=== PATIENT | male | born 1960 | race Caucasian/White ===

== ENCOUNTER 2020-09-09 12:23 | Emergency (ER) | payer BC ==
--- NOTE | 2020-09-09 13:42 | ERPHSYRPT ---
- History of Present Illness Time Seen by Provider: 09/09/20 13:37 Source: patient, family Exam Limitations: no limitations Patient Subjective Stated Complaint: Left leg pain and swelling for one week Triage Nursing Assessment: Patient AXO X3. Lungs clear throughout. Heart rate wnl. bowels sounds present. left leg swollen 1+ and tender to the touch. Pulses present Physician History: Left leg pain and swelling for one week This 60-year-old male with significant past medical history of factor V Leiden deficiency and history of chronic deep vein thrombosis of lower extremities for which patient has been on warfarin for years but he recently stopped taking it for last 2 months but started it again 5 days ago. He started having a pain in his left lower extremity below the knee so he came to the emergency room. Heladio bee denies any chest pain nausea vomiting shortness of breath blood in the stool or urine Method of Injury: unknown Occurred: yesterday Quality: aching Severity of Pain-Max: moderate Severity of Pain-Current: moderate Lower Extremities Pain: leg: left (below knee) Allergies/Adverse Reactions: No Known Drug Allergies Allergy (Unverified 09/09/20 13:08) Home Medications: Aspirin EC 81 mg [Ecotrin 81 mg] 81 mg PO DAILY 09/09/20 [History] Warfarin Sodium 2 mg [Coumadin 2 MG] 4 mg PO DIRECTIONS UNKNOWN 09/09/20 [History] Warfarin Sodium 3 mg [Coumadin 3 MG] 6 mg PO DIRECTIONS UNKNOWN 09/09/20 [History] Hx Tetanus, Diphtheria Vaccination/Date Given: No Hx Influenza Vaccination/Date Given: No Hx Pneumococcal Vaccination/Date Given: No Immunizations Up to Date: No Travel Risk - International Travel Have you traveled outside of the country in past 3 weeks: No - Coronavirus Screening Are you exhibiting any of the following symptoms?: No Close contact with a COVID-19 positive Pt in past 14-21 Days: No - Vaccine Status Have you recieved a Covid-19 vaccination: No - Review of Systems Constitutional: No Fever, No Chills Eyes: No Symptoms Ears, Nose, & Throat: No Symptoms Respiratory: No Cough, No Dyspnea Cardiac: No Chest Pain, No Edema, No Syncope Abdominal/Gastrointestinal: No Abdominal Pain, No Nausea, No Vomiting, No Diarrhea Genitourinary Symptoms: No Dysuria Musculoskeletal: Other (pain in left leg and calf area), No Back Pain, No Neck Pain Skin: No Rash Neurological: No Dizziness, No Focal Weakness, No Sensory Changes Psychological: No Symptoms Endocrine: No Symptoms All Other Systems: Reviewed and Negative - Past Medical History Pertinent Past Medical History: Yes Neurological History: No Pertinent History ENT History: No Pertinent History Cardiac History: No Pertinent History Respiratory History: No Pertinent History Endocrine Medical History: No Pertinent History Musculoskeletal History: No Pertinent History GI Medical History: No Pertinent History History: No Pertinent History Psycho-Social History: No Pertinent History Male Reproductive Disorders: No Pertinent History Other Medical History: Factor 5 - Past Surgical History Past Surgical History: Yes Neuro Surgical History: No Pertinent History Cardiac: Cardiac Stent Respiratory: No Pertinent History Gastrointestinal: No Pertinent History Genitourinary: No Pertinent History Musculoskeletal: Other Male Surgical History: No Pertinent History Other Surgical History: Trigger finger, Hemohorrid Removal - Social History Smoking Status: Current every day smoker Drug Use: none - Nursing Vital Signs Nursing Vital Signs: Initial Vital Signs Temperature 97.6 F 09/09/20 12:24 Pulse Rate 66 09/09/20 12:24 Respiratory Rate 20 09/09/20 12:24 Blood Pressure 137/95 09/09/20 12:24 O2 Sat by Pulse Oximetry 97 09/09/20 12:24 Pain Scale Pain Intensity 0 - Physical Exam General Appearance: alert Eyes, Ears, Nose, Throat Exam: moist mucous membranes Neck Exam: non-tender, supple Cardiovascular/Respiratory Exam: chest non-tender, normal breath sounds, regular rate/rhythm, no respiratory distress Gastrointestinal/Abdominal Exam: non-tender Back Exam: normal inspection, No vertebral tenderness Legs Exam: left leg: soft tissue tenderness (positive homans sign), swelling Knees Exam: bilateral knee: non-tender Ankle Exam: bilateral ankle: non-tender Foot Exam: bilateral foot: non-tender Neuro/Tendon Exam: normal sensation, normal motor functions Mental Status Exam: alert, oriented x 3, cooperative Skin Exam: normal color, warm, dry SpO2: 96 - Course Nursing assessment & vital signs reviewed: Yes - Radiology Ultrasound Exam Venous Lower Extremity Ultrasound: tele radiology report (left posterior tibial DVT.) Ordered Tests: Active Orders 24 hr Category Date Time Status VENOUS UNILAT/LIMITED EXTREMIT [US] Stat Exams 09/09/20 Ordered CBC W DIFF Stat Lab 09/09/20 13:30 Completed CMP Stat Lab 09/09/20 13:30 Completed D-DIMER QUANTITATIVE Stat Lab 09/09/20 13:30 Completed PROTIME WITH INR Stat Lab 09/09/20 13:30 Completed Medication Summary Discontinued Medications Generic Name Dose Route Start Last Admin Trade Name Freq PRN Reason Stop Dose Admin Warfarin Sodium 10 mg 09/09/20 14:15 09/09/20 14:34 Coumadin 10 Mg PO 09/09/20 14:16 10 mg STAT STA Administration Warfarin Sodium 10 mg 09/09/20 14:29 09/09/20 14:41 Coumadin 5 Mg PO 09/09/20 14:30 Not Given STAT STA Lab/Rad Data: Laboratory Result Diagrams 09/09/20 13:30 09/09/20 13:30 Laboratory Results 09/09/20 09/09/20 09/09/20 Range/Units 13:30 13:30 13:30 WBC 8.1 (4.0-10.5) K/mm3 RBC 5.54 (4.1-5.6) M/mm3 Hgb 16.7 (12.5-18.0) gm/dl Hct 49.9 (42-50) % MCV 90.1 (78-100) fl MCH 30.1 (26-32) pg MCHC 33.5 (32-36) g/dl RDW 13.4 (11.5-14.0) % Plt Count 177 (150-450) K/mm3 MPV 9.5 (7.5-11.0) fl Gran % 66.8 H (36.0-66.0) % Eos # (Auto) 0.22 (0-0.5) Absolute Lymphs (auto) 1.67 (1.0-4.6) Absolute Monos (auto) 0.76 (0.0-1.3) Lymphocytes % 20.7 L (24.0-44.0) % Monocytes % 9.4 (0.0-12.0) % Eosinophils % 2.7 (0.00-5.0) % Basophils % 0.4 (0.0-0.4) % Absolute Granulocytes 5.40 (1.4-6.9) Basophils # 0.03 (0-0.4) PT 19.7 H (8.83-12.87) SECONDS INR 1.73 (0.8-3.0) D-Dimer 1250 H* (215-500) ng/mL Sodium 139 (137-145) mmol/L Potassium 4.5 (3.5-5.1) mmol/L Chloride 106 (98-107) mmol/L Carbon Dioxide 28 (22-30) mmol/L Anion Gap 9.2 (5-15) MEQ/L BUN 12 (9-20) mg/dL Creatinine 1.26 H (0.66-1.25) mg/dL Estimated GFR > 60.0 ML/MIN Glucose 89 (74-106) mg/dL Calcium 9.4 (8.4-10.2) mg/dL Total Bilirubin 0.30 (0.2-1.3) mg/dL AST 24 (17-59) U/L ALT 23 (0-50) U/L Alkaline Phosphatase 73 (38-126) U/L Serum Total Protein 6.8 (6.3-8.2) g/dL Albumin 4.1 (3.5-5.0) g/dL - Progress Progress: unchanged, pain not gone completely Counseled pt/family regarding: lab results, diagnosis, need for follow-up, rad results - Departure Departure Disposition: Home Clinical Impression: Factor V inhibitor disorder Deep vein thrombosis Qualifiers: DVT location: lower extremity Affected thrombotic vein of extremity: calf mu scle vein Chronicity: chronic Laterality: left Qualified Code(s): I82.562 - 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 Do not stop warfarin at all. Discharge/Care Plan MARCUSEVANS Headley was seen on 09/09/20 in the Emergency Room. The patient was counseled regarding Diagnosis,Lab results, Imaging studies, need for follow up and when to return to the Emergency Room. Prescriptions given: Discharge Note I have spoken with the patient and/or caregivers. I have explained the patient's condition, diagnosis and treatment plan based on the information available to me at this time. I have answered the patient's and/or caregiver's questions and addressed any concerns. The patient and/or caregivers have as good understanding of the patient's diagnosis, condition and treatment plan as can be expected at this point. The vital signs have been stable. The patient's condition is stable and appropriate for discharge from the emergency department. The patient will pursue further outpatient evaluation with the primary care physician or other designated or consulting physician as outlined in the discharge instructions. The patient and/or caregivers are agreeable to this plan of care and follow-up instructions have been explained in detail. The patient and/or caregivers have received these instruction. The patient/and or caregivers are aware that any significant change in condition or worsening of symptoms should prompt an immediate return to this or the closest emergency department or call 911.
[2020-09-09 13:57] LABS: BASOPHIL % 0.4 % (0.0-0.4); Basophil (Absolute #) 0.03 (0-0.4); Eosinophil % 2.7 % (0.00-5.0); Eosinophil (Absolute #) 0.22 (0-0.5); Hematocrit 49.9 % (42-50); Hemoglobin 16.7 gm/dl (12.5-18.0); Lymphocyte (Absolute #) 1.67 (1.0-4.6); Lymphocytes % 20.7 % (24.0-44.0); Mean Cell Volume 90.1 fl (78-100); Mean Corpuscular Hemoglobin 30.1 pg (26-32); Mean Corpuscular Hgb Concent. 33.5 g/dl (32-36); Mean Platelet Volume 9.5 fl (7.5-11.0); Monocyte (Absolute #) 0.76 (0.0-1.3); Monocytes % 9.4 % (0.0-12.0); Neutrophil % 66.8 % (36.0-66.0); Platelet Count 177 K/mm3 (150-450); Red Blood Count 5.54 M/mm3 (4.1-5.6); Red Cell Distribution Width 13.4 % (11.5-14.0); White Blood Count 8.1 K/mm3 (4.0-10.5)
[2020-09-09 14:05] LABS: INR 1.73 (0.8-3.0); PROTIME 19.7 SECONDS (8.83-12.87)
[2020-09-09 14:11] LABS: ALBUMIN 4.1 g/dL (3.5-5.0); ALKALINE PHOSPHATASE 73 U/L (38-126); ANION GAP 9.2 MEQ/L (5-15); BLOOD UREA NITROGEN 12 mg/dL (9-20); CHLORIDE 106 mmol/L (98-107); Calcium 9.4 mg/dL (8.4-10.2); Carbon Dioxide 28 mmol/L (22-30); Creatinine 1 1.26 mg/dL (0.66-1.25); EST GLOMERULAR FILTRATION RATE > 60.0 ML/MIN; Glucose 89 mg/dL (74-106); Potassium 4.5 mmol/L (3.5-5.1); SGOT/AST 24 U/L (17-59); SGPT/ALT 23 U/L (0-50); SODIUM 139 mmol/L (137-145); Total Protein 6.8 g/dL (6.3-8.2)
[2020-09-09] MEDS ORDERED: Coumadin 10 MG PO STA (14:15)
[2020-09-09] MEDS ORDERED: Coumadin 5 MG PO STA (14:29)
[2020-09-09] MEDS ORDERED: ENOXAPARIN SODIUM SQ STA (15:01)
[2020-09-09] MEDS ORDERED: ENOXAPARIN SODIUM SQ ONE (15:09)
[2020-09-09 15:24] VITALS: BP 179/98; PULSE 60; O2SAT 99
--- NOTE | 2020-09-09 20:55 | XRAY ---
Indication: Left calf/ankle pain and swelling. History of DVT. Two-dimensional sonogram and color Doppler imaging of the major venous vessels of the left leg was performed. Comparison: None No thrombus seen in the examined deep venous vessels of the left leg including greater saphenous vein. Posterior tibial vein noncompressible. Remaining veins demonstrate normal compressibility. Venous waveforms are normal with and without augmentation. Impression: Left leg negative for obvious DVT. However posterior tibial vein noncompressible and therefore cannot completely exclude DVT. Comment: Preliminary report was given.
== END 2020-09-09 15:28 | disposition home or self-care (01) ==
LOC: ED 12:23
DX: D68.51 Activated protein C resistance (principal); I82.562 Chronic embolism and thrombosis of left calf muscular vein
CPT/HCPCS: 36415; 80053; 85025; 85379; 85610; 93971; 96372; 99284; 99291; J1650; A9270-GY

== ENCOUNTER 2023-12-11 16:15 | Emergency (ER) | payer BC ==
[2023-12-11 16:25] VITALS: RESP 20; TEMP 98
[2023-12-11 16:38] VITALS: BP 157/97; PULSE 86; O2SAT 94
--- NOTE | 2023-12-11 16:55 | ERPHSYRPT ---
- History of Present Illness Time Seen by Provider: 12/11/23 16:30 Source: patient Exam Limitations: no limitations Patient Subjective Stated Complaint: Lacaration Triage Nursing Assessment: Patient ambulated back to ED and transferred self to bed. Patient A+O X3. Patient's skin pink, warm and dry. Patient complains of laceration to left hand top of thumb. Patient has 13cm X 3cm laceration to top of thumb with tendon exposure. Patient denies pain or discomfort. Patient was using a utility knife when he missed and cut the left hand top of thumb area. Physician History: 63-year-old male [id number] presented to the ER with left thumb dorsal aspect laceration prior to arrival while working with a utility knife. Patient reports mild to moderate pain with movements. Has exposed tendon, slow oozing. Patient has history of factor V Leyden mutation and taking aspirin and Plavix. Denies any numbness or tingling at the tip. No injury anywhere else. Has 13 x 3 cm laceration from base of thumb to the nail with slow oozing distally. Exposed tendon with partial laceration. Fairly intact range of motion but full range of motion cannot be assessed because of pain. Intact distal sensations. Cap refill less than 3 seconds. I have discussed with Dr. Watts orthopedics on-call, recommended thorough wash, 2 g of Kefzol, skin closure and outpatient follow-up in the same-day surgery area tomorrow morning at 730 with n.p.o. status. X-rays are negative for fracture or dislocation. Laceration is repaired. Bulky dressing applied. I will continue with Keflex to go home. Allergies/Adverse Reactions: No Known Drug Allergies Allergy (Verified 12/11/23 16:19) Home Medications: Aspirin EC 81 mg [Ecotrin 81 mg] 81 mg PO DAILY 09/09/20 [History] Clopidogrel Bisulfate [PLAVIX Tablet] 1 tab PO DAILY 12/11/23 [History] Hx Tetanus, Diphtheria Vaccination/Date Given: No Hx Influenza Vaccination/Date Given: Yes Hx Pneumococcal Vaccination/Date Given: No Immunizations Up to Date: Yes Travel Risk - International Travel Have you traveled outside of the country in past 3 weeks: No - Emerging Infectious Disease Are you exhibiting symptoms associated with any current EIDs: No - Review of Systems Constitutional: No Symptoms Ears, Nose, & Throat: No Symptoms Respiratory: No Symptoms Cardiac: No Symptoms Abdominal/Gastrointestinal: No Symptoms Genitourinary Symptoms: No Symptoms Musculoskeletal: Injury, Joint Pain Skin: Skin Lesions Neurological: No Symptoms Endocrine: No Symptoms Hematologic/Lymphatic: No Symptoms - Past Medical History Pertinent Past Medical History: Yes Neurological History: No Pertinent History ENT History: No Pertinent History Cardiac History: No Pertinent History Respiratory History: No Pertinent History Endocrine Medical History: No Pertinent History Musculoskeletal History: No Pertinent History GI Medical History: No Pertinent History History: No Pertinent History Psycho-Social History: No Pertinent History Male Reproductive Disorders: No Pertinent History Other Medical History: Factor 5 - Past Surgical History Past Surgical History: Yes Neuro Surgical History: No Pertinent History Cardiac: Cardiac Stent Respiratory: No Pertinent History Gastrointestinal: No Pertinent History Genitourinary: No Pertinent History Musculoskeletal: Other Male Surgical History: No Pertinent History Other Surgical History: Trigger finger, Hemohorrid Removal - Social History Smoking Status: Current every day smoker How long have you smoked: years Exposure to second hand smoke: No Drug Use: none - Social Determinants of Health Will the patient participate in the screening: Yes Do you worry about a steady place to live?: No Do you have any problems with any of the following?: No known problems In the past 12 months,have you had to go without utilities?: No Transportation Issues: No Has anyone in your support network made you feel unsafe?: No Have you or anyone in your house had to go without enough: No - Nursing Vital Signs Nursing Vital Signs: Initial Vital Signs Temperature 98.0 F 12/11/23 16:22 Pulse Rate 88 12/11/23 16:22 Respiratory Rate 20 12/11/23 16:22 Blood Pressure 179/116 12/11/23 16:22 O2 Sat by Pulse Oximetry 96 12/11/23 16:22 Pain Scale Pain Intensity 5 - Physical Exam General Appearance: no apparent distress, alert Neck Exam: normal inspection, full range of motion Cardiovascular/Respiratory Exam: normal breath sounds, regular rate/rhythm Elbow/Forearm Exam: normal inspection, non-tender, no evidence of injury, normal ROM Wrist Exam: normal inspection, non-tender, no evidence of injury, normal ROM Hand Exam: laceration (Left thumb dorsal aspect) Neuro/Tendon Exam: normal sensation Mental Status Exam: alert SpO2 Interpretation: normal SpO2: 94 O2 Delivery: Room Air Procedures - Laceration/Wound Repair Left Dorsal Hand Time of Procedure: 18:09 Wound Location: Left, hand Wound Length (cm): 13 Wound's Depth, Shape: into muscle, linear, contused tissue Wound Explored: clean Irrigated: Yes Hibiclens Prep: Yes Anesthesia: 1% Lidocaine Volume Anesthetic (ccs): 7 Wound Debrided: minimal Wound Repaired With: sutures Suture Size/Type: 4-0, ethilon Number of Sutures: 22 Layer Closure?: No Sterile Dressing Applied?: Yes Splint Applied?: Yes Type of Splint Applied: Premade aluminum Sling Applied?: No Ordered Tests: Medication Summary Discontinued Medications Generic Name Dose Route Start Last Admin Trade Name Freq PRN Reason Stop Dose Admin Bacitracin Zinc Confirm 12/11/23 18:45 Bacitracin Packet 1 Each Pckt Administered 12/11/23 18:46 Dose 4 each .ROUTE .STK-MED ONE Cefazolin Sodium 2 g 12/11/23 18:08 12/11/23 18:35 Cefazolin Sodium 1 Gm Vial IM 12/11/23 18:09 2 g STAT ONE Administration Cefazolin Sodium Confirm 12/11/23 18:19 Cefazolin Sodium 1 Gm Vial Administered 12/11/23 18:20 Dose 2 g .ROUTE .STK-MED ONE Sterile Water Confirm 12/11/23 18:20 Water For Injection,Sterile 10 Ml Vial Administered 12/11/23 18:21 Dose 10 ml IJ .STK-MED ONE - Progress Progress: improved Progress Note: 63-year-old male [id number] presented to the ER with left thumb dorsal a spect laceration prior to arrival while working with a utility knife. Patient reports mild to moderate pain with movements. Has exposed tendon, slow oozing. Patient has history of factor V Leyden mutation and taking aspirin and Plavix. Denies any numbness or tingling at the tip. No injury anywhere else. Has 13 x 3 cm laceration from base of thumb to the nail with slow oozing distally. Exposed tendon with partial laceration. Fairly intact range of motion but full range of motion cannot be assessed because of pain. Intact distal sensations. Cap refill less than 3 seconds. I have discussed with Dr. Watts orthopedics on-call, recommended thorough wash, 2 g of Kefzol, skin closure and outpatient follow-up in the same-day surgery area tomorrow morning at 730 with n.p.o. status. X-rays are negative for fracture or dislocation. Laceration is repaired. Bulky dressing applied. I will continue with Keflex to go home. Counseled pt/family regarding: diagnosis, need for follow-up Medical Desision Making - Independent Historian Additional History obtained from: Spouse - Discussion of managment Care discussed with:: specialist (Orthopedics Dr. Watts) Agreed on:: Treatment plan, need for follow-up Will see patient: in hospital - Diagnostic Testing Diagnostic test were ordered, analyzed, and reviewed by me: No - Risk of complications The pt has a mod risk of morbidity or mortality based on: Need for prescription drug management, Need for minor surgical intervention in patient with know risk factors - Departure Departure Disposition: Home Clinical Impression: Thumb laceration Condition: Stable Critical Care Time: No Referrals: BRAD KILGORE MD [Primary Care Provider] - Follow up with PCP 1 day EMMANUEL WATTS MD [ACTIVE STAFF] - Follow up/PCP as directed (Tomorrow morning 7:30 AM at same-day surgery area. He would not eat or drink anything after midnight) Instructions: Laceration Repair With Stitches (DC) Additional Instructions: Take pain medications as needed. Intermittent ice application. Keep it elevated. Avoid exertional activities. Follow-up with orthopedics for reevaluation in the morning in the same-day surgery area at 7:30 AM. Do not eat or drink anything after midnight. Return to ER for increasing pain, numbness tingling or bluish discoloration of the tip. Prescriptions: Hydrocodone/Acetaminophen [Hydrocodone-Acetamin 5-325 mg] 1 tab PO Q6HPRN PRN 3 Days #12 tablet MDD 4 PRN Reason: Pain Cephalexin Mh 500 mg [Keflex 500 mg] 500 mg PO TID #21 cap
--- NOTE | 2023-12-11 17:16 | XRAY ---
Indication: Thumb laceration. Comparison: None 3 view right hand demonstrates bandage material overlying thumb and ring base 4th finger. No other bony, articular, or soft tissue abnormalities.
[2023-12-11] MEDS ORDERED: KEFZOL 1 GM ONE (18:19)
[2023-12-11] MEDS ORDERED: Sterile H2O 10 ml IJ ONE (18:20)
[2023-12-11] MEDS: KEFZOL 1 GM IM ONE (18:35)
[2023-12-11] MEDS ORDERED: BACIGUENT PACKET ONE (18:45)
== END 2023-12-11 18:59 | disposition home or self-care (01) ==
LOC: ED 16:15
DX: S61.012A Laceration without foreign body of left thumb without damage to nail, initial encounter (principal); W26.0XXA Contact with knife, initial encounter; Z79.02 Long term (current) use of antithrombotics/antiplatelets; Z79.899 Other long term (current) drug therapy; Z72.0 Tobacco use
CPT/HCPCS: 12005; 73130; 96372; 99283; J0690; A9270-GY

== ENCOUNTER 2024-03-17 18:12 | Observation (INO) | payer BC ==
--- NOTE | 2024-03-17 19:36 | ERPHSYRPT ---
- History of Present Illness Time Seen by Provider: 03/17/24 19:33 Source: patient Exam Limitations: no limitations Physician History: Patient is a 63-year-old male history of factor V [place] has been off of his blood thinner for several months presents to our ED for evaluation of continuous cough and left sided rib pain. No trauma no fever. Prior to the onset of his symptoms patient experienced some tenderness to his left calf. Patient symptoms are progressive. Symptoms are moderate in intensity. Patient experiences shortness of breath with coughing on exertion. No chest pain per se. No nausea vomiting or diaphoresis. Symptoms are moderate in intensity. Coughing and exertion worsens symptoms. at bedside. They voiced no other complaints or concerns at this time. Portions of this note were created with voice recognition technology. There may be grammatical, spelling, punctuation or sound alike errors Timing/Duration: day(s) (2 to 3 days) Severity: moderate Modifying Factors: Improves With: nothing (Exertion coughing) Associated Symptoms: shortness of breath, No chills, No fever, No syncope Allergies/Adverse Reactions: No Known Drug Allergies Allergy (Verified 03/17/24 19:24) Home Medications: Aspirin EC 81 mg [Ecotrin 81 mg] 81 mg PO DAILY 09/09/20 [History] Rivaroxaban 10 mg Tablet [Xarelto 10 mg Tablet] 10 mg PO DAILY 03/17/24 [History] Hx Tetanus, Diphtheria Vaccination/Date Given: No Hx Influenza Vaccination/Date Given: Yes Hx Pneumococcal Vaccination/Date Given: No Travel Risk - Emerging Infectious Disease Are you exhibiting symptoms associated with any current EIDs: No - Review of Systems Constitutional: No Symptoms, No Fever, No Chills Eyes: No Symptoms Ears, Nose, & Throat: No Symptoms Respiratory: No Symptoms, No Cough, No Dyspnea Cardiac: No Symptoms, No Chest Pain, No Edema, No Syncope Abdominal/Gastrointestinal: No Symptoms, No Abdominal Pain, No Nausea, No Vomiting, No Diarrhea Genitourinary Symptoms: No Symptoms, No Dysuria Musculoskeletal: No Symptoms, No Back Pain, No Neck Pain Skin: No Symptoms, No Rash Neurological: No Symptoms, No Dizziness, No Focal Weakness, No Sensory Changes Psychological: No Symptoms Endocrine: No Symptoms Hematologic/Lymphatic: No Symptoms Immunological/Allergic: No Symptoms All Other Systems: Reviewed and Negative - Past Medical History Pertinent Past Medical History: Yes Neurological History: No Pertinent History, TIA ENT History: No Pertinent History Cardiac History: Coronary Artery Disease, Deep Vein Thrombosis, Hypertension, Myocardial Infarction ([place]) Respiratory History: No Pertinent History, Pulmonary Embolism Endocrine Medical History: No Pertinent History Musculoskeletal History: No Pertinent History GI Medical History: No Pertinent History History: No Pertinent History Psycho-Social History: No Pertinent History Male Reproductive Disorders: No Pertinent History Other Medical History: Factor 5 - Past Surgical History Past Surgical History: Yes Neuro Surgical History: No Pertinent History Cardiac: Cardiac Stent Respiratory: No Pertinent History Gastrointestinal: No Pertinent History Genitourinary: No Pertinent History Musculoskeletal: Other Male Surgical History: No Pertinent History Other Surgical History: Left Trigger finger, Hemohorrid Removal - Social History Smoking Status: Current every day smoker How long have you smoked: years Exposure to second hand smoke: No Drug Use: none - Social Determinants of Health Will the patient participate in the screening: Yes Do you worry about a steady place to live?: No In the past 12 months,have you had to go without utilities?: No Transportation Issues: No Has anyone in your support network made you feel unsafe?: No Have you or anyone in your house had to go without enough: No - Nursing Vital Signs Nursing Vital Signs: Initial Vital Signs Temperature 96.6 F 03/17/24 19:26 Pulse Rate 89 03/17/24 19:26 Respiratory Rate 18 03/17/24 19:26 Blood Pressure 145/102 03/17/24 19:26 O2 Sat by Pulse Oximetry 96 03/17/24 19:26 Pain Scale Pain Intensity 5 - Physical Exam General Appearance: no apparent distress, alert Eye Exam: PERRL/EOMI, eyes nml inspection Ears, Nose, Throat Exam: normal ENT inspection, moist mucous membranes Neck Exam: normal inspection, full range of motion Respiratory Exam: normal breath sounds, lungs clear, airway intact, other (Tenderness to the left sided ribs), No respiratory distress Cardiovascular Exam: regular rate/rhythm, normal heart sounds, normal peripheral pulses Gastrointestinal/Abdomen Exam: soft, normal bowel sounds, No tenderness, No mass Back Exam: normal inspection, normal range of motion, No CVA tenderness, No vertebral tenderness Extremity Exam: normal inspection, normal range of motion, pelvis stable Neurologic Exam: alert, oriented x 3, cooperative, normal mood/affect, sensation nml, No motor deficits Skin Exam: normal color, warm, dry, No rash Lymphatic Exam: No adenopathy SpO2 Interpretation: normal SpO2: 97 O2 Delivery: Room Air - Course Nursing assessment & vital signs reviewed: Yes EKG Interpreted by Me: RATE (78), Sinus Rhythm, NORMAL AXIS, NORMAL INTERVALS, NORMAL QRS - CT Exams Chest CT Interpretation: Tele-radiologist Report (PE distal left main and right main pulmonary artery extending into the lobar branches) Ordered Tests: Active Orders 24 hr Category Date Time Status Book Cutter STAT Care 03/17/24 19:27 Active EKG-ER Only STAT Care 03/17/24 19:25 Active IV Insertion STAT Care 03/17/24 19:25 Active Pulse Oximetry (ED) STAT Care 03/17/24 19:25 Active CHEST WITH CONTRAST [CT] Stat Exams 03/17/24 20:48 Taken CBC W DIFF Stat Lab 03/17/24 19:35 Completed CMP Stat Lab 03/17/24 19:35 Completed TROPONIN Q4H Lab 03/17/24 19:35 Completed TROPONIN Q4H Lab 03/17/24 23:30 Ordered TROPONIN Q4H Lab 03/18/24 03:30 Ordered Transfer Order Routine Transfer 03/17/24 Ordered Medication Summary Discontinued Medications Generic Name Dose Route Start Last Admin Trade Name Freq PRN Reason Stop Dose Admin Enoxaparin Sodium 100 mg 03/17/24 22:29 Enoxaparin Sodium 120 Mg/0.8 Ml Syringe SQ 03/17/24 22:30 STAT STA Lab/Rad Data: Laboratory Result Diagrams 03/17/24 19:35 03/17/24 19:35 Laboratory Results 03/17/24 03/17/24 03/17/24 Range/Units 19:35 19:35 19:35 WBC 10.5 H (4.23-9.07) x10^3/uL RBC 5.40 (4.63-6.08) x10^6/uL Hgb 16.0 (13.7-17.5) g/dL Hct 47.3 (40.1-51.0) % MCV 87.6 (79.0-92.2) fL MCH 29.6 (25.7-32.2) pg MCHC 33.8 (32.3-36.5) g/dL RDW 12.0 (11.6-14.4) % Plt Count 152 L (163-337) x10^3/uL MPV 9.3 L (9.4-12.4) fL Gran % 71.6 H (34.0-67.9) % Immature Gran % (Auto) 0.4 (0.001-0.429) % Nucleat RBC Rel Count 0.0 (0.00-0.2) % Eos # (Auto) 0.18 (0.04-0.54) x10^3/uL Immature Gran # (Auto) 0.04 H (0.001-0.031) x10^3u/L Absolute Lymphs (auto) 1.66 (1.32-3.57) x10^3/uL Absolute Monos (auto) 1.06 H (0.30-0.82) x10^3/uL Absolute Nucleated RBC 0.00 (0.00-0.012) x10^3u/L Lymphocytes % 15.8 L (21.8-53.1) % Monocytes % 10.1 (5.3-12.2) % Eosinophils % 1.7 (0.8-7.0) % Basophils % 0.4 (0.2-1.2) % Absolute Granulocytes 7.51 H (1.78-5.38) x10^3/uL Basophils # 0.04 (0.01-0.08) x10^3/uL Sodium 141 (135-145) mmol/L Potassium 3.7 (3.5-5.1) mmol/L Chloride 103 (98-107) mmol/L Carbon Dioxide 30 (22-30) mmol/L Anion Gap 11.7 (5-15) MEQ/L BUN 14 (9-20) mg/dL Creatinine 1.09 (0.66-1.25) mg/dL Estimated GFR 77.2 ML/MIN Glucose 112 H (74-106) mg/dL Calcium 9.6 (8.4-10.2) mg/dL Total Bilirubin 0.80 (0.2-1.3) mg/dL AST 29 (17-59) U/L ALT 33 (0-50) U/L Alkaline Phosphatase 75 (38-126) U/L Troponin I < 0.012 (0.000-0.033) ng/mL Serum Total Protein 6.8 (6.3-8.2) g/dL Albumin 3.9 (3.5-5.0) g/dL - Progress Progress: improved Progress Note: I spoke to patient's framing carpenter Dr. Scott who initiated patient's treatment with Xarelto. Mechanical Drafter advises hospitalization with a dose of weight-based Lovenox. Bilateral lower extremity ultrasounds as an inpatient. Initiation of Xarelto 15 mg twice daily for 21 days then 20 mg daily. I spoke to Dr. Scott at 10:20 PM 03/17/24 22:19 63-year-old history of factor V noncompliant with his blood thinner presents to our ED with left-sided chest pain. CTA chest reveals bilateral PE. Case discussed with patient's framing carpenter who manages patient's blood thinner medication. He advised weight-based dose of Lovenox hospitalization for echocardiogram, lower extremity ultrasounds and initiation of Xarelto tomorrow. Plan of care discussed with patient. He agrees to admission [facility] for further evaluation and treatment. Vital stable. Troponin negative. Patient resting comfortably. He declined additional pain medication at bedside. They voiced no other complaints or concerns at this time. EKG sinus rhythm rate 78. Normal intervals normal axis normal QRS. Portions of this note were created with voice recognition technology. There may be grammatical, spelling, punctuation or sound alike errors Complexity of problem addressed is moderate acute complicated no critical care time complex of data reviewed and analyzed is extensive. Test ordered chest reviewed results analyzed and correlated clinically with history and physical exam. Management discussed with patient's framing carpenter and hospitalist who accepts admission to observation at 10:30 PM. Risk of complication and or risk of morbidity/mortality of patient management is high. Patient requires hospita lization for further evaluation and treatment. Vital stable. Time spent to admit patient approximately 20 minutes. Plan of care established for shared decision making. No social determinants of health present to impede follow-up. 03/17/24 22:35 Counseled pt/family regarding: lab results, diagnosis, rad results - Departure Departure Disposition: Home Clinical Impression: Bilateral pulmonary embolism, Noncompliance with medication regimen, Chest pain Condition: Stable Critical Care Time: No Referrals: BRAD KILGORE MD [Primary Care Provider] - Follow up/PCP as directed
[2024-03-17 19:43] LABS: Absolute Neutrophil Ct (ANC) 7.51 x10^3/uL (1.78-5.38); BASOPHIL % 0.4 % (0.2-1.2); Basophil (Absolute #) 0.04 x10^3/uL (0.01-0.08); Eosinophil % 1.7 % (0.8-7.0); Eosinophil (Absolute #) 0.18 x10^3/uL (0.04-0.54); Hematocrit 47.3 % (40.1-51.0); IMMATURE GRAN # 0.04 x10^3u/L (0.001-0.031); IMMATURE GRAN % 0.4 % (0.001-0.429); Lymphocyte (Absolute #) 1.66 x10^3/uL (1.32-3.57); Lymphocytes % 15.8 % (21.8-53.1); Mean Cell Volume 87.6 fL (79.0-92.2); Mean Corpuscular Hemoglobin 29.6 pg (25.7-32.2); Mean Corpuscular Hgb Concent. 33.8 g/dL (32.3-36.5); Mean Platelet Volume 9.3 fL (9.4-12.4); Monocyte (Absolute #) 1.06 x10^3/uL (0.30-0.82); Monocytes % 10.1 % (5.3-12.2); Neutrophil % 71.6 % (34.0-67.9); Platelet Count 152 x10^3/uL (163-337); White Blood Count 10.5 x10^3/uL (4.23-9.07)
[2024-03-17 20:20] LABS: ALBUMIN 3.9 g/dL (3.5-5.0); ANION GAP 11.7 MEQ/L (5-15); BILIRUBIN,TOTAL 0.8 mg/dL (0.2-1.3); Calcium 9.6 mg/dL (8.4-10.2); Creatinine 1 1.09 mg/dL (0.66-1.25); EST GLOMERULAR FILTRATION RATE 77.2 ML/MIN; Potassium 3.7 mmol/L (3.5-5.1); Total Protein 6.8 g/dL (6.3-8.2)
[2024-03-17] MEDS ORDERED: ENOXAPARIN SODIUM SQ ONE (22:33)
[2024-03-17] MEDS: ENOXAPARIN SODIUM SQ STA (22:34)
[2024-03-17] MEDS ORDERED: TYLENOL 325 MG PO PRN (23:57)
[2024-03-17] MEDS ORDERED: Zofran 4 MG/2 ML VIAL IV PRN (23:57)
[2024-03-17] MEDS ORDERED: MILK OF MAGNESIA 30 ML PO PRN (23:57)
--- NOTE | 2024-03-18 00:27 | PCM.HP ---
History of Present Illness - Chief Complaint Chief Complaint: Bilateral PE Date: 03/17/24 History of Present Illness: is a 63 year old male with a history of factor V Leiden (has been off of his blood thinner for several months) who now presented to the ED for evaluation of continuous cough and left sided rib pain. No trauma no fever. Prior to the onset of his symptoms patient experienced some tenderness to his left calf, but he denies any leg swelling. Patient symptoms are progressive. Symptoms are moderate in intensity. Patient experiences shortness of breath with coughing on exertion. Reported chest pain in the ED. No nausea vomiting or diaphoresis. Coughing and exertion worsens symptoms. In the ED, the patient was noted to have pulmonary emboli. Dr. Scott was contacted with recommendations for Lovenox and admission. At the time of my evaluation, the patient no longer has chest pain. He had stopped his Xarelto due to focusing on a home renovation project and denies losing insurance coverage. - Review of Systems Constitutional: No Symptoms Eyes: No Symptoms Ears, Nose, & Throat: No Symptoms Respiratory: Cough, Short Of Breath Cardiac: Chest Pain Abdominal/Gastrointestinal: No Symptoms Genitourinary Symptoms: No Symptoms Musculoskeletal: No Symptoms Skin: No Symptoms Neurological: No Symptoms Psychological: No Symptoms Endocrine: No Symptoms Hematologic/Lymphatic: No Symptoms Immunological/Allergic: No Symptoms All Other Systems: Reviewed and Negative Medications & Allergies Home Medications: Home Medication List Aspirin EC 81 mg [Ecotrin 81 mg] 81 mg PO DAILY 09/09/20 [History Con firmed 03/17/24] Atorvastatin Calcium [Lipitor] 40 mg PO DAILY 03/17/24 [History Confirmed 03/17/24] Lisinopril 5 mg [Zestril 5 MG] 5 mg PO DAILY 03/17/24 [History Confirmed 03/17/24] PANTOPRAZOLE 40 mg Tablet [Protonix 40MG Tablet] 40 mg PO DAILY 03/17/24 [History Confirmed 03/17/24] Rivaroxaban [Xarelto] 20 mg PO DAILY 03/17/24 [History Confirmed 03/17/24] Allergies/Adverse Reactions: Allergies Allergy/AdvReac Type Severity Reaction Status Date / Time No Known Drug Allergies Allergy Verified 03/17/24 19:24 - Past Medical History Past Medical History: Yes Neurological History: TIA ENT History: No Pertinent History Cardiac History: Coronary Artery Disease, Deep Vein Thrombosis, Hypertension, Myocardial Infarction ([place]) Respiratory History: Pulmonary Embolism Endocrine Medical History: No Pertinent History Musculoskelatal History: Arthritis GI Medical History: No Pertinent History History: No Pertinent History Pyscho-Social History: No Pertinent History Male Reproductive Disorders: No Pertinent History Comment: Factor 5 - Past Surgical History Past Surgical History: Yes Neuro Surgical History: No Pertinent History Cardiac History: Cardiac Stent Respiratory Surgery: No Pertinent History GI Surgical History: No Pertinent History Genitourinary Surgical Hx: No Pertinent History Musculskeletal Surgical Hx: Other Male Surgical History: No Pertinent History Other Surgical History: Left Trigger finger, Hemohorrid Removal Family History: Patient's father had Factor V Leiden as well. - Social History Smoking Status: Current every day smoker How long have you smoked: 43 years Exposure to second hand smoke: No Alcohol: Occasionally Drug Use: none - Social Determinants of Health Will the patient participate in the screening: Yes Do you worry about a steady place to live?: No Do you have any problems with any of the following?: No known problems In the past 12 months,have you had to go without utilities?: No Have you or anyone in your house had to go without enough: No Transportation Issues: No Has anyone in your support network made you feel unsafe?: No Does the patient want assistance with any of the above?: No - Physical Exam Vital Signs: Vital Signs - 24 hr Temp Pulse Resp BP BP Pulse Ox 03/17/24 23:55 94 L 03/17/24 23:43 97.1 F 76 24 162/87 91 L 03/17/24 22:50 97.1 F 76 24 162/87 91 L 03/17/24 22:38 97 03/17/24 22:30 79 140/82 96 03/17/24 22:00 78 20 135/88 94 L 03/17/24 21:30 79 20 129/81 94 L 03/17/24 21:01 78 21 117/94 95 03/17/24 21:00 86 21 94 L 03/17/24 20:50 78 20 96 03/17/24 20:42 86 20 94 L 03/17/24 20:01 78 20 146/88 96 03/17/24 19:51 95 03/17/24 19:30 79 20 133/89 95 03/17/24 19:26 96.6 F 89 18 145/102 96 General Appearance: no apparent distress, alert Neurologic Exam: alert, oriented x 3, cooperative, block sawyer II-XII nml as tested, normal mood/affect, nml cerebellar function Eye Exam: PERRL/EOMI, eyes nml inspection Ears, Nose, Throat Exam: normal ENT inspection Neck Exam: normal inspection, non-tender, supple, full range of motion Respiratory Exam: normal breath sounds, lungs clear Cardiovascular Exam: regular rate/rhythm, normal heart sounds Gastrointestinal/Abdomen Exam: soft, normal bowel sounds Back Exam: normal range of motion Extremity Exam: normal inspection, normal range of motion Skin Exam: normal color Results - Labs Lab/Micro Results: Lab Results-Last 24 Hours 03/17/24 03/17/24 03/17/24 Range/Units 19:35 19:35 19:35 WBC 10.5 H (4.23-9.07) x10^3/uL RBC 5.40 (4.63-6.08) x10^6/uL Hgb 16.0 (13.7-17.5) g/dL Hct 47.3 (40.1-51.0) % MCV 87.6 (79.0-92.2) fL MCH 29.6 (25.7-32.2) pg MCHC 33.8 (32.3-36.5) g/dL RDW 12.0 (11.6-14.4) % Plt Count 152 L (163-337) x10^3/uL MPV 9.3 L (9.4-12.4) fL Gran % 71.6 H (34.0-67.9) % Immature Gran % (Auto) 0.4 (0.001-0.429) % Nucleat RBC Rel Count 0.0 (0.00-0.2) % Eos # (Auto) 0.18 (0.04-0.54) x10^3/uL Immature Gran # (Auto) 0.04 H (0.001-0.031) x10^3u/L Absolute Lymphs (auto) 1.66 (1.32-3.57) x10^3/uL Absolute Monos (auto) 1.06 H (0.30-0.82) x10^3/uL Absolute Nucleated RBC 0.00 (0.00-0.012) x10^3u/L Lymphocytes % 15.8 L (21.8-53.1) % Monocytes % 10.1 (5.3-12.2) % Eosinophils % 1.7 (0.8-7.0) % Basophils % 0.4 (0.2-1.2) % Absolute Granulocytes 7.51 H (1.78-5.38) x10^3/uL Basophils # 0.04 (0.01-0.08) x10^3/uL Sodium 141 (135-145) mmol/L Potassium 3.7 (3.5-5.1) mmol/L Chloride 103 (98-107) mmol/L Carbon Dioxide 30 (22-30) mmol/L Anion Gap 11.7 (5-15) MEQ/L BUN 14 (9-20) mg/dL Creatinine 1.09 (0.66-1.25) mg/dL Estimated GFR 77.2 ML/MIN Glucose 112 H (74-106) mg/dL Calcium 9.6 (8.4-10.2) mg/dL Total Bilirubin 0.80 (0.2-1.3) mg/dL AST 29 (17-59) U/L ALT 33 (0-50) U/L Alkaline Phosphatase 75 (38-126) U/L Troponin I < 0.012 (0.000-0.033) ng/mL Serum Total Protein 6.8 (6.3-8.2) g/dL Albumin 3.9 (3.5-5.0) g/dL 03/17/24 Range/Units 23:25 WBC (4.23-9.07) x10^3/uL RBC (4.63-6.08) x10^6/uL Hgb (13.7-17.5) g/dL Hct (40.1-51.0) % MCV (79.0-92.2) fL MCH (25.7-32.2) pg MCHC (32.3-36.5) g/dL RDW (11.6-14.4) % Plt Count (163-337) x10^3/uL MPV (9.4-12.4) fL Gran % (34.0-67.9) % Immature Gran % (Auto) (0.001-0.429) % Nucleat RBC Rel Count (0.00-0.2) % Eos # (Auto) (0.04-0.54) x10^3/uL Immature Gran # (Auto) (0.001-0.031) x10^3u/L Absolute Lymphs (auto) (1.32-3.57) x10^3/uL Absolute Monos (auto) (0.30-0.82) x10^3/uL Absolute Nucleated RBC (0.00-0.012) x10^3u/L Lymphocytes % (21.8-53.1) % Monocytes % (5.3-12.2) % Eosinophils % (0.8-7.0) % Basophils % (0.2-1.2) % Absolute Granulocytes (1.78-5.38) x10^3/uL Basophils # (0.01-0.08) x10^3/uL Sodium (135-145) mmol/L Potassium (3.5-5.1) mmol/L Chloride (98-107) mmol/L Carbon Dioxide (22-30) mmol/L Anion Gap (5-15) MEQ/L BUN (9-20) mg/dL Creatinine (0.66-1.25) mg/dL Estimated GFR ML/MIN Glucose (74-106) mg/dL Calcium (8.4-10.2) mg/dL Total Bilirubin (0.2-1.3) mg/dL AST (17-59) U/L ALT (0-50) U/L Alkaline Phosphatase (38-126) U/L Troponin I < 0.012 (0.000-0.033) ng/mL Serum Total Protein (6.3-8.2) g/dL Albumin (3.5-5.0) g/dL - Radiology Impressions Radiology Exams & Impressions: Radiology Procedures Category Date Time Status CHEST WITH CONTRAST [CT] Stat Exams 03/17/24 20:48 Taken ECHO W/2D AND DOPPLER [US] Routine Exams 03/18/24 23:58 Ordered VENOUS BILATERAL EXTREMITY [US] Routine Exams 03/18/24 23:56 Ordered - Other Procedures and Tests Respiratory Therapy 12/04/24 23:32 Smoking Cessation Education ONCE Assessment/Plan (1) Bilateral pulmonary embolism Current Visit: Yes Status: Acute Assessment & Plan: Lovenox administered in ED. Will start Xarelto loading regimen tomorrow 15 mg po bid x 21 days, followed by maintenance at 20 mg daily. Monitor on tele. US legs to eval for DVT in AM (had left calf pain recently). Also ordered ECHO to eval for heart strain pattern. Code(s): I26.99 - OTHER PULMONARY EMBOLISM WITHOUT ACUTE COR PULMONALE (2) Factor V inhibitor disorder Current Visit: No Status: Acute Assessment & Plan: Reviewed the critical importance of compliance with anticoagulation in the future. Patient expressed understanding. Code(s): D68.318 - OTH HEMORRHAGIC DISORD D/T INTRNS CIRC ANTICOAG,ANTIB,INHIB (3) Chest pain Current Visit: Yes Status: Acute Assessment & Plan: Pleurisy due to PE. Monitor on tele. Code(s): R07.9 - CHEST PAIN, UNSPECIFIED Telemedicine Encounter - Telemedicine Encounter Telemedicine Encounter: "The entirety of this encounter was performed via Telemedicine" This visit was performed using real-time audio and video connection between my location and thepatients locationwith the assistance of a surrogateat the patients location. Written or verbal consent was obtained from the patient/guardian to perform this visit [facility] technology. Any patient questions regarding the telemedicine interaction were answered.
[2024-03-18 04:51] LABS: Absolute Neutrophil Ct (ANC) 5.29 x10^3/uL (1.78-5.38); BASOPHIL % 0.5 % (0.2-1.2); Basophil (Absolute #) 0.05 x10^3/uL (0.01-0.08); Eosinophil % 1.9 % (0.8-7.0); Eosinophil (Absolute #) 0.17 x10^3/uL (0.04-0.54); Hematocrit 46.1 % (40.1-51.0); Hemoglobin 15.4 g/dL (13.7-17.5); IMMATURE GRAN # 0.03 x10^3u/L (0.001-0.031); IMMATURE GRAN % 0.3 % (0.001-0.429); Lymphocyte (Absolute #) 2.42 x10^3/uL (1.32-3.57); Lymphocytes % 26.6 % (21.8-53.1); Mean Cell Volume 88.8 fL (79.0-92.2); Mean Corpuscular Hemoglobin 29.7 pg (25.7-32.2); Mean Corpuscular Hgb Concent. 33.4 g/dL (32.3-36.5); Mean Platelet Volume 9.6 fL (9.4-12.4); Monocyte (Absolute #) 1.14 x10^3/uL (0.30-0.82); Monocytes % 12.5 % (5.3-12.2); Neutrophil % 58.2 % (34.0-67.9); Platelet Count 142 x10^3/uL (163-337); Red Blood Count 5.19 x10^6/uL (4.63-6.08); Red Cell Distribution Width 12.1 % (11.6-14.4); White Blood Count 9.1 x10^3/uL (4.23-9.07)
--- NOTE | 2024-03-18 08:54 | XRAY ---
Indication: Chest pain. Pulmonary embolus. Multiple contiguous axial images obtained through the chest using 80 cc Isovue 370 contrast and PE protocol. Comparison: None Adequate opacification pulmonary arteries nonoccluding pulmonary emboli seen in the distal left and lesser degree distal right main pulmonary arteries. Pulmonary emboli further extends into all lobar and segmental branches, sparing right middle lobe. Heart not enlarged. Aorta is normal in course and caliber. No pathologic mediastinal/hilar lymphadenopathy. Lungs hyperinflated with lateral mid to lower lung subsegmental atelectasis/scarring and right base bullae. No suspicious pulmonary mass/nodule, infiltrate, or effusion. Bony thorax intact. Limited upper abdomen demonstrate fatty liver and multiple small round hepatic cysts largest 1.6 cm. Impression: 1. Diffuse bilateral pulmonary emboli. No distal pulmonary infarct. 2. Chronic findings including atelectasis/scarring, right base bullae, fatty liver, and hepatic cysts.
--- NOTE | 2024-03-18 09:42 | PCM.DS ---
Discharge Summary Date of Admission: 03/17/24 22:47 Date of Discharge: 03/18/24 Admitting Physician: LOIS MANCERA MD Primary Care Provider: BRAD KILGORE Allergies Allergies No Known Drug Allergies Allergy (Verified 03/17/24 19:24) Hospital Summary - Hospital Course Hospital Course: is a 63 year old male with a history of factor V Leiden (has been off of his blood thinner for several months). He presented 03/17/24 to the ED for evaluation of continuous cough and left sided rib pain. No trauma no fever. Prior to the onset of his symptoms patient experienced some tenderness to his left calf, but he denies any leg swelling. Patient symptoms are progressive. Symptoms are moderate in intensity. Patient experiences shortness of breath with coughing on exertion. Reported chest pain in the ED. No nausea vomiting or diaphoresis. Coughing and exertion worsens symptoms. In the ED, the patient was noted to have pulmonary emboli. Dr. Scott was contacted with recommendations for Lovenox and admission. At the time of my evaluation, the patient no longer has chest pain. He had stopped his Xarelto due to focusing on a home renovation project and denies losing insurance coverage. Xarelto started BID. Echo pending. Venous duplex shows- Extensive occluding DVT left leg as detailed, Right leg negative for DVT. Call out to pt's trolley coach driver as to how to manage and if pt is candidate for thrombectomy. Pt denies CP, SOB, Abd pain, N/V/D. - Vitals & Intake/Output Vital Signs: Vital Signs Temperature 96.4 F 03/18/24 07:23 Pulse Rate 68 03/18/24 07:23 Respiratory Rate 18 03/18/24 07:23 Blood Pressure 142/80 03/18/24 07:23 O2 Sat by Pulse Oximetry 95 03/18/24 08:26 Intake & Output: Intake & Output 03/15/24 03/16/24 03/17/24 03/18/24 11:59 11:59 11:59 11:59 Intake Total 240 Balance 240 Weight 100.1 kg - Lab Result Diagrams: 03/18/24 04:14 03/17/24 19:35 Lab Results-Last 24 Hrs: Lab Results-Last 24 Hours 12/04/24 12/04/24 12/04/24 Range/Units 19:35 19:35 19:35 WBC 10.5 H (4.23-9.07) x10^3/uL RBC 5.40 (4.63-6.08) x10^6/uL Hgb 16.0 (13.7-17.5) g/dL Hct 47.3 (40.1-51.0) % MCV 87.6 (79.0-92.2) fL MCH 29.6 (25.7-32.2) pg MCHC 33.8 (32.3-36.5) g/dL RDW 12.0 (11.6-14.4) % Plt Count 152 L (163-337) x10^3/uL MPV 9.3 L (9.4-12.4) fL Gran % 71.6 H (34.0-67.9) % Immature Gran % (Auto) 0.4 (0.001-0.429) % Nucleat RBC Rel Count 0.0 (0.00-0.2) % Eos # (Auto) 0.18 (0.04-0.54) x10^3/uL Immature Gran # (Auto) 0.04 H (0.001-0.031) x10^3u/L Absolute Lymphs (auto) 1.66 (1.32-3.57) x10^3/uL Absolute Monos (auto) 1.06 H (0.30-0.82) x10^3/uL Absolute Nucleated RBC 0.00 (0.00-0.012) x10^3u/L Lymphocytes % 15.8 L (21.8-53.1) % Monocytes % 10.1 (5.3-12.2) % Eosinophils % 1.7 (0.8-7.0) % Basophils % 0.4 (0.2-1.2) % Absolute Granulocytes 7.51 H (1.78-5.38) x10^3/uL Basophils # 0.04 (0.01-0.08) x10^3/uL Sodium 141 (135-145) mmol/L Potassium 3.7 (3.5-5.1) mmol/L Chloride 103 (98-107) mmol/L Carbon Dioxide 30 (22-30) mmol/L Anion Gap 11.7 (5-15) MEQ/L BUN 14 (9-20) mg/dL Creatinine 1.09 (0.66-1.25) mg/dL Estimated GFR 77.2 ML/MIN Glucose 112 H (74-106) mg/dL Calcium 9.6 (8.4-10.2) mg/dL Total Bilirubin 0.80 (0.2-1.3) mg/dL AST 29 (17-59) U/L ALT 33 (0-50) U/L Alkaline Phosphatase 75 (38-126) U/L Troponin I < 0.012 (0.000-0.033) ng/mL Serum Total Protein 6.8 (6.3-8.2) g/dL Albumin 3.9 (3.5-5.0) g/dL 03/17/24 03/18/24 03/18/24 Range/Units 23:25 04:14 04:14 WBC 9.1 H (4.23-9.07) x10^3/uL RBC 5.19 (4.63-6.08) x10^6/uL Hgb 15.4 (13.7-17.5) g/dL Hct 46.1 (40.1-51.0) % MCV 88.8 (79.0-92.2) fL MCH 29.7 (25.7-32.2) pg MCHC 33.4 (32.3-36.5) g/dL RDW 12.1 (11.6-14.4) % Plt Count 142 L (163-337) x10^3/uL MPV 9.6 (9.4-12.4) fL Gran % 58.2 (34.0-67.9) % Immature Gran % (Auto) 0.3 (0.001-0.429) % Nucleat RBC Rel Count 0.0 (0.00-0.2) % Eos # (Auto) 0.17 (0.04-0.54) x10^3/uL Immature Gran # (Auto) 0.03 (0.001-0.031) x10^3u/L Absolute Lymphs (auto) 2.42 (1.32-3.57) x10^3/uL Absolute Monos (auto) 1.14 H (0.30-0.82) x10^3/uL Absolute Nucleated RBC 0.00 (0.00-0.012) x10^3u/L Lymphocytes % 26.6 (21.8-53.1) % Monocytes % 12.5 H (5.3-12.2) % Eosinophils % 1.9 (0.8-7.0) % Basophils % 0.5 (0.2-1.2) % Absolute Granulocytes 5.29 (1.78-5.38) x10^3/uL Basophils # 0.05 (0.01-0.08) x10^3/uL Sodium (135-145) mmol/L Potassium (3.5-5.1) mmol/L Chloride (98-107) mmol/L Carbon Dioxide (22-30) mmol/L Anion Gap (5-15) MEQ/L BUN (9-20) mg/dL Creatinine (0.66-1.25) mg/dL Estimated GFR ML/MIN Glucose (74-106) mg/dL Calcium (8.4-10.2) mg/dL Total Bilirubin (0.2-1.3) mg/dL AST (17-59) U/L ALT (0-50) U/L Alkaline Phosphatase (38-126) U/L Troponin I < 0.012 < 0.012 (0.000-0.033) ng/mL Serum Total Protein (6.3-8.2) g/dL Albumin (3.5-5.0) g/dL - Radiology Exams Ordered Rad Exams-Entire Visit: Radiology Procedures Category Date Time Status CHEST WITH CONTRAST [CT] Stat Exams 03/17/24 20:48 Completed ECHO W/2D AND DOPPLER [US] Routine Exams 03/18/24 23:58 Ordered VENOUS BILATERAL EXTREMITY [US] Routine Exams 03/18/24 23:56 Ordered - Procedures and Test Procedures and Tests throughout Hospitalization: Therapy Orders & Screens 03/17/24 23:32 Smoking Cessation Education ONCE Comment: Diagnosis: Bilateral PE Smoking Status: Current every day smoker How long have you smoked: 43 years Approximately how many cigarettes per day: 1/2 pack/day Do you dip or chew tobacco: Yes Discharge Exam General Appearance: no apparent distress, alert Neurologic Exam: alert, oriented x 3, cooperative, normal mood/affect, nml cerebellar function, sensation nml, No motor deficits Eye Exam: PERRL, EOMI, eyes nml inspection Ears, Nose, Throat Exam: normal ENT inspection, pharynx normal, moist mucous membranes Neck Exam: normal inspection, non-tender, supple, full range of motion Respiratory Exam: normal breath sounds, lungs clear, No respiratory distress Cardiovascular Exam: regular rate/rhythm, normal heart sounds Gastrointestinal/Abdomen Exam: soft, No tenderness, No mass Male Genitalia Exam: deferred Rectal Exam: deferred Back Exam: normal inspection, normal range of motion, No CVA tenderness, No vertebral tenderness Extremity Exam: normal inspection, normal range of motion Skin Exam: normal color, warm, dry Final Diagnosis/Problem List - Final Discharge Diagnosis/Problem (1) Bilateral pulmonary embolism Current Visit: Yes Status: Acute Assessment & Plan: - Lovenox administered in ED. Will start Xarelto loading regimen tomorrow 15 mg po bid x 21 days, followed by maintenance at 20 mg daily. Monitor on tele. US l egs to eval for DVT in AM (had left calf pain recently). Also ordered ECHO to eval for heart strain pattern. 03/18 - Xarelto BID started today - Echo pending - venous duplex: Impression: 1. Extensive occluding DVT left leg as detailed. 2. Right leg negative for DVT. Code(s): I26.99 - OTHER PULMONARY EMBOLISM WITHOUT ACUTE COR PULMONALE (2) Chest pain Current Visit: Yes Status: Acute Assessment & Plan: - Trop x3 negative - EKG - Tele - echo pending Code(s): R07.9 - CHEST PAIN, UNSPECIFIED (3) Noncompliance with medication regimen Current Visit: Yes Status: Acute Assessment & Plan: - Stopped taking xaretlo - discussed importance and possible consequences including with non-compliance. 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 Patient expressed understanding. Code(s): D68.318 - OTH HEMORRHAGIC DISORD D/T INTRNS CIRC ANTICOAG,ANTIB,INHIB (5) BMI 30.0-30.9,adult Current Visit: Yes Status: Chronic Assessment & Plan: - advised diet and exercise control Code(s): Z68.30 - BODY MASS INDEX [BMI] 30.0-30.9, ADULT - Discharge Disposition: Home, Self-Care Condition: Stable Prescriptions: No Action Aspirin EC 81 mg [Ecotrin 81 mg] 81 mg PO DAILY Atorvastatin Calcium [Lipitor] 40 mg PO DAILY PANTOPRAZOLE 40 mg Tablet [Protonix 40MG Tablet] 40 mg PO DAILY Lisinopril 5 mg [Zestril 5 MG] 5 mg PO DAILY Rivaroxaban [Xarelto] 20 mg PO DAILY Follow up with: BRAD KILGORE MD [Primary Care Provider] -
[2024-03-18] MEDS ORDERED: LIPITOR 40MG PO SCH (10:00)
[2024-03-18] MEDS: ECOTRIN 81 MG PO SCH (10:20)
[2024-03-18] MEDS: Zestril 5 MG PO SCH (10:20)
[2024-03-18] MEDS: Protonix 40MG Tablet PO SCH (10:20)
[2024-03-18] MEDS: XARELTO 10 MG TABLET PO SCH (10:20)
[2024-03-18] MEDS: ZOCOR 20MG PO SCH (10:21)
--- NOTE | 2024-03-18 12:21 | XRAY ---
Indication: Pulmonary embolus. Two-dimensional sonogram and color Doppler imaging major venous vessels left and right leg performed. Comparison: None Left leg demonstrates occluding thrombi throughout femoral, popliteal, and proximal posterior tibial veins. No thrombus seen in the examined deep venous vessels right leg including greater saphenous vein. Veins demonstrate normal compressibility. Venous waveforms are normal with and without augmentation. Impression: 1. Extensive occluding DVT left leg as detailed. 2. Right leg negative for DVT.
[2024-03-18 13:44] LABS: ALBUMIN 3.4 g/dL (3.5-5.0); ANION GAP 10.7 MEQ/L (5-15); BILIRUBIN,TOTAL 0.8 mg/dL (0.2-1.3); Calcium 9.6 mg/dL (8.4-10.2); Creatinine 1 1.13 mg/dL (0.66-1.25)
--- NOTE | 2024-03-18 15:23 | PCM.NOTE ---
Date and Time: 03/18/24 1523 Subjective Assessment: 03/18/24 is a 63 year old male with a history of factor V Leiden (has been off of his blood thinner for several months). He presented 03/17/24 to the ED for evaluation of continuous cough and left sided rib pain. No trauma no fever. Prior to the onset of his symptoms patient experienced some tenderness to his left calf, but he denies any leg swelling. Patient symptoms are progressive. Symptoms are moderate in intensity. Patient experiences shortness of breath with coughing on exertion. Reported chest pain in the ED. No nausea vomiting or diaphoresis. Coughing and exertion worsens symptoms. In the ED, the patient was noted to have pulmonary emboli. Dr. Scott was contacted with re commendations for Lovenox and admission. At the time of my evaluation, the patient no longer has chest pain. He had stopped his Xarelto due to focusing on a home renovation project and denies losing insurance coverage. Xarelto started BID. Echo pending. Venous duplex shows- Extensive occluding DVT left leg as detailed, Right leg negative for DVT. Spoke with pt's dust handler Dr. Scott as to how to manage and he would not recommend transfer for thrombectomy at this time since pt is stable. Pt has good pulses of LLE, temp is the same as right leg, and there is no edema or new discoloration from normal per pt. Cardiology recommended to continue Xarelto BID and possible d/c tomorrow unless he develops complications. If he develops any concerns then will need transferred for possi ble thrombectomy. Pt denies CP, SOB, abd pain, N/V/D. - Review of Systems Constitutional: No Fever, No Chills Eyes: No Symptoms Ears, Nose, & Throat: No Symptoms Respiratory: No Cough, No Short Of Breath Cardiac: No Chest Pain, No Edema, No Syncope Abdominal/Gastrointestinal: No Abdominal Pain, No Nausea, No Vomiting, No Diarrhea Genitourinary Symptoms: No Dysuria Musculoskeletal: No Back Pain, No Neck Pain Skin: Other (discoloration of BLLE), No Rash Neurological: No Dizziness, No Focal Weakness, No Sensory Changes Psychological: No Symptoms Endocrine: No Symptoms Hematologic/Lymphatic: No Symptoms Immunological/Allergic: No Symptoms Objective Exam General Appearance: no apparent distress, alert Neurologic Exam: alert, oriented x 3, cooperative, normal mood/affect, nml cerebellar function, sensation nml, No motor deficits Skin Exam: normal color, warm, dry Eye Exam: PERRL, EOMI, eyes nml inspection Ears, Nose, Throat Exam: normal ENT inspection, pharynx normal, moist mucous membranes Neck Exam: normal inspection, non-tender, supple, full range of motion Respiratory Exam: normal breath sounds, lungs clear, No respiratory distress Cardiovascular Exam: regular rate/rhythm, normal heart sounds Gastrointestinal/Abdomen Exam: soft, No tenderness, No mass Extremity Exam: normal inspection, normal range of motion Back Exam: normal inspection, normal range of motion, No CVA tenderness, No vertebral tenderness Male Genitalia Exam: deferred Rectal Exam: deferred Objective Data Vital Signs: Vital Signs - 24 hr Temp Pulse Resp BP BP Pulse Ox 03/18/24 12:00 96.1 F 69 16 144/79 93 L 03/18/24 08:26 95 03/18/24 07:23 96.4 F 68 18 142/80 93 L 03/18/24 04:00 97.8 F 58 L 22 141/80 94 L 03/17/24 23:55 94 L 03/17/24 23:43 97.1 F 76 24 162/87 91 L 03/17/24 22:50 97.1 F 76 24 162/87 91 L 03/17/24 22:38 97 03/17/24 22:30 79 140/82 96 03/17/24 22:00 78 20 135/88 94 L 03/17/24 21:30 79 20 129/81 94 L 03/17/24 21:01 78 21 117/94 95 03/17/24 21:00 86 21 94 L 03/17/24 20:50 78 20 96 03/17/24 20:42 86 20 94 L 03/17/24 20:01 78 20 146/88 96 03/17/24 19:51 95 03/17/24 19:30 79 20 133/89 95 03/17/24 19:26 96.6 F 89 18 145/102 96 Pain Assessment - Last Documented Pain Intensity 5 Intake and Output: Intake & Output 03/16/24 03/17/24 03/18/24 03/19/24 11:59 11:59 11:59 11:59 Intake Total 240 240 Balance 240 240 Weight 100.1 kg Lab Results: Lab Results-Last 24 Hours 03/17/24 03/17/24 03/17/24 Range/Units 19:35 19:35 19:35 WBC 10.5 H (4.23-9.07) x10^3/uL RBC 5.40 (4.63-6.08) x10^6/uL Hgb 16.0 (13.7-17.5) g/dL Hct 47.3 (40.1-51.0) % MCV 87.6 (79.0-92.2) fL MCH 29.6 (25.7-32.2) pg MCHC 33.8 (32.3-36.5) g/dL RDW 12.0 (11.6-14.4) % Plt Count 152 L (163-337) x10^3/uL MPV 9.3 L (9.4-12.4) fL Gran % 71.6 H (34.0-67.9) % Immature Gran % (Auto) 0.4 (0.001-0.429) % Nucleat RBC Rel Count 0.0 (0.00-0.2) % Eos # (Auto) 0.18 (0.04-0.54) x10^3/uL Immature Gran # (Auto) 0.04 H (0.001-0.031) x10^3u/L Absolute Lymphs (auto) 1.66 (1.32-3.57) x10^3/uL Absolute Monos (auto) 1.06 H (0.30-0.82) x10^3/uL Absolute Nucleated RBC 0.00 (0.00-0.012) x10^3u/L Lymphocytes % 15.8 L (21.8-53.1) % Monocytes % 10.1 (5.3-12.2) % Eosinophils % 1.7 (0.8-7.0) % Basophils % 0.4 (0.2-1.2) % Absolute Granulocytes 7.51 H (1.78-5.38) x10^3/uL Basophils # 0.04 (0.01-0.08) x10^3/uL Sodium 141 (135-145) mmol/L Potassium 3.7 (3.5-5.1) mmol/L Chloride 103 (98-107) mmol/L Carbon Dioxide 30 (22-30) mmol/L Anion Gap 11.7 (5-15) MEQ/L BUN 14 (9-20) mg/dL Creatinine 1.09 (0.66-1.25) mg/dL Estimated GFR 77.2 ML/MIN Glucose 112 H (74-106) mg/dL Calcium 9.6 (8.4-10.2) mg/dL Total Bilirubin 0.80 (0.2-1.3) mg/dL AST 29 (17-59) U/L ALT 33 (0-50) U/L Alkaline Phosphatase 75 (38-126) U/L Troponin I < 0.012 (0.000-0.033) ng/mL Serum Total Protein 6.8 (6.3-8.2) g/dL Albumin 3.9 (3.5-5.0) g/dL 03/17/24 03/18/24 03/18/24 Range/Units 23:25 04:14 04:14 WBC 9.1 H (4.23-9.07) x10^3/uL RBC 5.19 (4.63-6.08) x10^6/uL Hgb 15.4 (13.7-17.5) g/dL Hct 46.1 (40.1-51.0) % MCV 88.8 (79.0-92.2) fL MCH 29.7 (25.7-32.2) pg MCHC 33.4 (32.3-36.5) g/dL RDW 12.1 (11.6-14.4) % Plt Count 142 L (163-337) x10^3/uL MPV 9.6 (9.4-12.4) fL Gran % 58.2 (34.0-67.9) % Immature Gran % (Auto) 0.3 (0.001-0.429) % Nucleat RBC Rel Count 0.0 (0.00-0.2) % Eos # (Auto) 0.17 (0.04-0.54) x10^3/uL Immature Gran # (Auto) 0.03 (0.001-0.031) x10^3u/L Absolute Lymphs (auto) 2.42 (1.32-3.57) x10^3/uL Absolute Monos (auto) 1.14 H (0.30-0.82) x10^3/uL Absolute Nucleated RBC 0.00 (0.00-0.012) x10^3u/L Lymphocytes % 26.6 (21.8-53.1) % Monocytes % 12.5 H (5.3-12.2) % Eosinophils % 1.9 (0.8-7.0) % Basophils % 0.5 (0.2-1.2) % Absolute Granulocytes 5.29 (1.78-5.38) x10^3/uL Basophils # 0.05 (0.01-0.08) x10^3/uL Sodium (135-145) mmol/L Potassium (3.5-5.1) mmol/L Chloride (98-107) mmol/L Carbon Dioxide (22-30) mmol/L Anion Gap (5-15) MEQ/L BUN (9-20) mg/dL Creatinine (0.66-1.25) mg/dL Estimated GFR ML/MIN Glucose (74-106) mg/dL Calcium (8.4-10.2) mg/dL Total Bilirubin (0.2-1.3) mg/dL AST (17-59) U/L ALT (0-50) U/L Alkaline Phosphatase (38-126) U/L Troponin I < 0.012 < 0.012 (0.000-0.033) ng/mL Serum Total Protein (6.3-8.2) g/dL Albumin (3.5-5.0) g/dL 03/18/24 Range/Units 04:14 WBC (4.23-9.07) x10^3/uL RBC (4.63-6.08) x10^6/uL Hgb (13.7-17.5) g/dL Hct (40.1-51.0) % MCV (79.0-92.2) fL MCH (25.7-32.2) pg MCHC (32.3-36.5) g/dL RDW (11.6-14.4) % Plt Count (163-337) x10^3/uL MPV (9.4-12.4) fL Gran % (34.0-67.9) % Immature Gran % (Auto) (0.001-0.429) % Nucleat RBC Rel Count (0.00-0.2) % Eos # (Auto) (0.04-0.54) x10^3/uL Immature Gran # (Auto) (0.001-0.031) x10^3u/L Absolute Lymphs (auto) (1.32-3.57) x10^3/uL Absolute Monos (auto) (0.30-0.82) x10^3/uL Absolute Nucleated RBC (0.00-0.012) x10^3u/L Lymphocytes % (21.8-53.1) % Monocytes % (5.3-12.2) % Eosinophils % (0.8-7.0) % Basophils % (0.2-1.2) % Absolute Granulocytes (1.78-5.38) x10^3/uL Basophils # (0.01-0.08) x10^3/uL Sodium 139 (135-145) mmol/L Potassium 4.0 (3.5-5.1) mmol/L Chloride 102 (98-107) mmol/L Carbon Dioxide 30 (22-30) mmol/L Anion Gap 10.7 (5-15) MEQ/L BUN 13 (9-20) mg/dL Creatinine 1.13 (0.66-1.25) mg/dL Estimated GFR 74.0 ML/MIN Glucose 86 (74-106) mg/dL Calcium 9.6 (8.4-10.2) mg/dL Total Bilirubin 0.80 (0.2-1.3) mg/dL AST 21 (17-59) U/L ALT 26 (0-50) U/L Alkaline Phosphatase 80 (38-126) U/L Troponin I (0.000-0.033) ng/mL Serum Total Protein 6.0 L (6.3-8.2) g/dL Albumin 3.4 L (3.5-5.0) g/dL Radiology Exams: Radiology Procedures Category Date Time Status CHEST WITH CONTRAST [CT] Stat Exams 03/17/24 20:48 Completed ECHO W/2D AND DOPPLER [US] Routine Exams 03/18/24 23:58 Taken VENOUS BILATERAL EXTREMITY [US] Routine Exams 03/18/24 23:56 Completed Assessment/Plan (1) Bilateral pulmonary embolism Current Visit: Yes Status: Acute Code(s): I26.99 - OTHER PULMONARY EMBOLISM WITHOUT ACUTE COR PULMONALE (2) Chest pain Current Visit: Yes Status: Acute Code(s): R07.9 - CHEST PAIN, UNSPECIFIED (3) Noncompliance with medication regimen Current Visit: Yes Status: Acute Code(s): Z91.148 - PATIENT'S OTHER NONCOMPL WITH MEDS REGIMEN FOR OTHER REASON (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 Will start Xarelto loading regimen tomorrow 15 mg po bid x 21 days, followed by maintenance at 20 mg daily. Monitor on tele. US legs to eval for DVT in AM (had left calf pain recently). Also ordered ECHO to eval for heart strain pattern. 03/18 - Xarelto BID started today - Echo pending - venous duplex: Impression: 1. Extensive occluding DVT left leg as detailed. 2. Right leg negative for DVT. - discussed findings with Dr. Scott- pt's dust handler- recommenced to stay another night and watch LLE for any concerns, pt to transfer for any concerning sxs. Code(s): I26.99 - OTHER PULMONARY EMBOLISM WITHOUT ACUTE COR PULMONALE (2) Chest pain Current Visit: Yes Status: Acute Assessment & Plan: - Trop x3 negative - EKG - Tele - echo pending Code(s): R07.9 - CHEST PAIN, UNSPECIFIED (3) Noncompliance with medication regimen Current Visit: Yes Status: Acute Assessment & Plan: - Stopped taking xaretlo - discussed importance and possible consequences including with non-compliance. 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 Patient expressed understanding. Code(s): D68.318 - OTH HEMORRHAGIC DISORD D/T INTRNS CIRC ANTICOAG,ANTIB,INHIB (5) BMI 30.0-30.9,adult Current Visit: Yes Status: Chronic Assessment & Plan: - advised diet and exercise control Code(s): Z68.30 - BODY MASS INDEX [BMI] 30.0-30.9, ADULT Code(s): Z68.30 - BODY MASS INDEX [BMI] 30.0-30.9, ADULT
[2024-03-18] MEDS: Hydromorphone 1 mg/ml Injection IV PRN (17:25)
[2024-03-18 20:51] VITALS: O2SAT 95
[2024-03-19 04:50] LABS: Hemoglobin 15.3 g/dL (13.7-17.5); Mean Cell Volume 86.9 fL (79.0-92.2); Mean Corpuscular Hemoglobin 29.5 pg (25.7-32.2); Mean Platelet Volume 9.7 fL (9.4-12.4); Platelet Count 176 x10^3/uL (163-337); Red Blood Count 5.18 x10^6/uL (4.63-6.08); Red Cell Distribution Width 12.1 % (11.6-14.4); White Blood Count 9.8 x10^3/uL (4.23-9.07)
[2024-03-19 05:05] LABS: ALBUMIN 3.6 g/dL (3.5-5.0); ANION GAP 9.4 MEQ/L (5-15); BILIRUBIN,TOTAL 0.7 mg/dL (0.2-1.3); Calcium 9.1 mg/dL (8.4-10.2); Creatinine 1 1.16 mg/dL (0.66-1.25); EST GLOMERULAR FILTRATION RATE 71.7 ML/MIN; Potassium 3.3 mmol/L (3.5-5.1); Total Protein 6.6 g/dL (6.3-8.2)
--- NOTE | 2024-03-19 06:22 | PCM.DS ---
Discharge Summary Date of Admission: 03/17/24 22:47 Date of Discharge: 03/19/24 Admitting Physician: LOIS MANCERA MD Primary Care Provider: BRAD KILGORE Allergies Allergies No Known Drug Allergies Allergy (Verified 03/17/24 19:24) Hospital Summary - Hospital Course Hospital Course: is a 63 year old male with a history of factor V Leiden (has been off of his blood thinner for several months). He presented 03/17/24 to the ED for evaluation of continuous cough and left sided rib pain. No trauma no fever. Prior to the onset of his symptoms patient experienced some tenderness to his left calf, but he denies any leg swelling. Patient symptoms are progressive. Symptoms are moderate in intensity. Patient experiences shortness of breath with coughing on exertion. Reported chest pain in the ED. No nausea vomiting or diaphoresis. Coughing and exertion worsens symptoms. In the ED, the patient was noted to have pulmonary emboli. Dr. Cummins was contacted with recommendations for Lovenox and admission. At the time of my evaluation, the patient no longer has chest pain. He had stopped his Xarelto due to focusing on a home renovation project and denies losing insurance coverage. Xarelto started BID. Echo pending. Venous duplex shows- Extensive occluding DVT left leg as detailed, Right leg negative for DVT. Spoke with pt's nuisance wildlife trapper Dr. Cummins as to how to manage and he would not recommend transfer for thrombectomy at this time since pt is stable. Pt has good pulses of LLE, temp is the same as right leg, and there is no edema or new discoloration from normal per pt. Cardiology recommended to continue Xarelto 15mg BID for 21 daily then maintenance at 20 mg daily. Patient has had no further complications. Advised no strenuous work at least for a week. He will also follow up with hematology for his Factor V. P atient is requesting discharge and is stable. Discharge Note New Diagnosis:Bilateral PE/DVT New Medications: Xarelto - 15mg bid x 19 more days then Xarelto 20mg daily there after Follow Up: Sonia - cardiology - Friday Latest Assessment & Plan (1) Bilateral pulmonary embolism - Lovenox administered in ED. Proceed with Xarelto loading regimen tomorrow 15 mg po bid x 21 days, followed by maintenance at 20 mg daily -Monitor on tele -venous duplex reviewed demonstrating extensive occluding DVT left leg as detailed. Right leg negative for DVT. - ECHO to eval for heart strain pattern -pending - Xarelto BID started 03/18/24 - Reviewed documentation Dr. Cummins- pt's nuisance wildlife trapper has recommenced to stay another night 03/18/24 and watch LLE for any concerns, pt to transfer for any concerning sxs. (2) Chest pain - Trop x3 negative - EKG - Tele - echo pending (3) Noncompliance with medication regimen - Stopped taking xaretlo - discussed importance and possible consequences including with non-compliance. (4) Factor V inhibitor disorder -Reviewed the critical importance of compliance with anticoagulation in the future. Patient expressed understanding. (5) BMI 30.0-30.9,adult - advised diet and exercise control I spent 35 minutes [id number] with the patient on the day of discharge performing discharge exam, discussing hospital stay and discharge instructions with patient and caregivers, preparation of discharge records, prescriptions & referral forms and addressing any questions/concerns the patient had as documen servando above. - Vitals & Intake/Output Vital Signs: Vital Signs Temperature 97.7 F 03/19/24 04:00 Pulse Rate 65 03/19/24 04:00 Respiratory Rate 20 03/19/24 04:00 Blood Pressure 131/72 03/19/24 04:00 O2 Sat by Pulse Oximetry 95 03/19/24 04:00 Intake & Output: Intake & Output 03/16/24 03/17/24 03/18/24 03/19/24 11:59 11:59 11:59 11:59 Intake Total 240 1660 Balance 240 1660 Weight 100.1 kg - Lab Result Diagrams: 03/19/24 04:13 03/19/24 04:13 Lab Results-Last 24 Hrs: Lab Results-Last 24 Hours 03/18/24 03/18/24 03/19/24 Range/Units 04:14 04:14 04:13 WBC 9.8 H (4.23-9.07) x10^3/uL RBC 5.18 (4.63-6.08) x10^6/uL Hgb 15.3 (13.7-17.5) g/dL Hct 45.0 (40.1-51.0) % MCV 86.9 (79.0-92.2) fL MCH 29.5 (25.7-32.2) pg MCHC 34.0 (32.3-36.5) g/dL RDW 12.1 (11.6-14.4) % Plt Count 176 (163-337) x10^3/uL MPV 9.7 (9.4-12.4) fL Sodium 139 (135-145) mmol/L Potassium 4.0 (3.5-5.1) mmol/L Chloride 102 (98-107) mmol/L Carbon Dioxide 30 (22-30) mmol/L Anion Gap 10.7 (5-15) MEQ/L BUN 13 (9-20) mg/dL Creatinine 1.13 (0.66-1.25) mg/dL Estimated GFR 74.0 ML/MIN Glucose 86 (74-106) mg/dL Calcium 9.6 (8.4-10.2) mg/dL Total Bilirubin 0.80 (0.2-1.3) mg/dL AST 21 (17-59) U/L ALT 26 (0-50) U/L Alkaline Phosphatase 80 (38-126) U/L Troponin I < 0.012 (0.000-0.033) ng/mL Serum Total Protein 6.0 L (6.3-8.2) g/dL Albumin 3.4 L (3.5-5.0) g/dL 03/19/24 Range/Units 04:13 WBC (4.23-9.07) x10^3/uL RBC (4.63-6.08) x10^6/uL Hgb (13.7-17.5) g/dL Hct (40.1-51.0) % MCV (79.0-92.2) fL MCH (25.7-32.2) pg MCHC (32.3-36.5) g/dL RDW (11.6-14.4) % Plt Count (163-337) x10^3/uL MPV (9.4-12.4) fL Sodium 137 (135-145) mmol/L Potassium 3.3 L (3.5-5.1) mmol/L Chloride 102 (98-107) mmol/L Carbon Dioxide 28 (22-30) mmol/L Anion Gap 9.4 (5-15) MEQ/L BUN 11 (9-20) mg/dL Creatinine 1.16 (0.66-1.25) mg/dL Estimated GFR 71.7 ML/MIN Glucose 111 H (74-106) mg/dL Calcium 9.1 (8.4-10.2) mg/dL Total Bilirubin 0.70 (0.2-1.3) mg/dL AST 23 (17-59) U/L ALT 25 (0-50) U/L Alkaline Phosphatase 71 (38-126) U/L Troponin I (0.000-0.033) ng/mL Serum Total Protein 6.6 (6.3-8.2) g/dL Albumin 3.6 (3.5-5.0) g/dL - Radiology Exams Ordered Rad Exams-Entire Visit: Radiology Procedures Category Date Time Status CHEST WITH CONTRAST [CT] Stat Exams 03/17/24 20:48 Completed ECHO W/2D AND DOPPLER [US] Routine Exams 03/18/24 23:58 Taken VENOUS BILATERAL EXTREMITY [US] Routine Exams 03/18/24 23:56 Completed - Procedures and Test Procedures and Tests throughout Hospitalization: Therapy Orders & Screens 03/17/24 23:32 Smoking Cessation Education ONCE Comment: Diagnosis: Bilateral PE Smoking Status: Current every day smoker How long have you smoked: 43 years Approximately how many cigarettes per day: 1/2 pack/day Do you dip or chew tobacco: Yes Discharge Exam General Appearance: no apparent distress Neurologic Exam: alert, oriented x 3, cooperative Eye Exam: PERRL Ears, Nose, Throat Exam: normal ENT inspection Neck Exam: normal inspection Respiratory Exam: normal breath sounds Cardiovascular Exam: regular rate/rhythm, normal heart sounds Gastrointestinal/Abdomen Exam: soft, normal bowel sounds Male Genitalia Exam: deferred Rectal Exam: deferred Back Exam: normal inspection Extremity Exam: normal inspection Skin Exam: normal color Final Diagnosis/Problem List - Final Discharge Diagnosis/Problem (1) Bilateral pulmonary embolism Current Visit: Yes Status: Acute Code(s): I26.99 - OTHER PULMONARY EMBOLISM WITHOUT ACUTE COR PULMONALE (2) Chest pain Current Visit: Yes Status: Acute Code(s): R07.9 - CHEST PAIN, UNSPECIFIED (3) Noncompliance with medication regimen Current Visit: Yes Status: Chronic Code(s): Z91.148 - PATIENT'S OTHER NONCOMPL WITH MEDS REGIMEN FOR OTHER REASON (4) BMI 30.0-30.9,adult Current Visit: Yes Status: Chronic Code(s): Z68.30 - BODY MASS INDEX [BMI] 30.0-30.9, ADULT (5) Factor V inhibitor disorder Current Visit: No Status: Chronic Code(s): D68.318 - OTH HEMORRHAGIC DISORD D/T INTRNS CIRC ANTICOAG,ANTIB,INHIB - Discharge Disposition: Home, Self-Care Condition: Stable Prescriptions: New Rivaroxaban 10 mg Tablet [Xarelto 10 mg Tablet] 15 mg PO BID 20 Days #40 tablet Continue Aspirin EC 81 mg [Ecotrin 81 mg] 81 mg PO DAILY Atorvastatin Calcium [Lipitor] 40 mg PO DAILY PANTOPRAZOLE 40 mg Tablet [Protonix 40MG Tablet] 40 mg PO DAILY Lisinopril 5 mg [Zestril 5 MG] 5 mg PO DAILY Changed Rivaroxaban [Xarelto] See Rx Instructions .ROUTE .COMPLEX 30 Days #30 tablet MDD 1 Follow up with: CINDA CMUMINS [CONSULTING PHYSICIAN] - 03/22/24 9:45 am BRAD KILGORE MD [Primary Care Provider] - 03/24/24 11:00 am NADEEN BLANCO MD [NON-STAFF PHY W/O PRIVILEGES] - Call for Appointment
[2024-03-19] MEDS: Klor Con PO SCH (07:17)
[2024-03-19 11:34] VITALS: BP 134/72; PULSE 75; RESP 20; TEMP 98
== END 2024-03-19 13:53 | disposition home or self-care (01) ==
LOC: ED 18:12 → MED SURG 22:47
PROVIDERS: ADMIT Internal Medicine; ATTEND Internal Medicine
DX: I26.99 Other pulmonary embolism without acute cor pulmonale (principal); R07.9 Chest pain, unspecified; D68.318 Other hemorrhagic disorder due to intrinsic circulating anticoagulants, antibodies, or inhibitors; I25.10 Atherosclerotic heart disease of native coronary artery without angina pectoris; I10 Essential (primary) hypertension; I25.2 Old myocardial infarction; F17.200 Nicotine dependence, unspecified, uncomplicated; Z91.148 Patient's other noncompliance with medication regimen for other reason; Z68.30 Body mass index [BMI] 30.0-30.9, adult; Z79.899 Other long term (current) drug therapy
CPT/HCPCS: 36415; 71260; 80053; 83735; 84132; 84484; 85025; 85027; 93005; 93041; 93306; 93970; 94760; 94762; 96372; 99285; Q3014; J1171; J1650; A9270-GY

== ENCOUNTER 2024-05-14 00:46 | Emergency (ER) | payer BC ==
[2024-05-14 01:01] VITALS: TEMP 97.3
[2024-05-14 01:17] LABS: Absolute Neutrophil Ct (ANC) 3.91 x10^3/uL (1.78-5.38); BASOPHIL % 0.6 % (0.2-1.2); Basophil (Absolute #) 0.04 x10^3/uL (0.01-0.08); Eosinophil (Absolute #) 0.13 x10^3/uL (0.04-0.54); Hematocrit 49.6 % (40.1-51.0); Hemoglobin 16.8 g/dL (13.7-17.5); IMMATURE GRAN # 0.01 x10^3u/L (0.001-0.031); IMMATURE GRAN % 0.2 % (0.001-0.429); Lymphocyte (Absolute #) 1.64 x10^3/uL (1.32-3.57); Lymphocytes % 25.4 % (21.8-53.1); Mean Cell Volume 86.1 fL (79.0-92.2); Mean Corpuscular Hemoglobin 29.2 pg (25.7-32.2); Mean Corpuscular Hgb Concent. 33.9 g/dL (32.3-36.5); Mean Platelet Volume 9.4 fL (9.4-12.4); Monocyte (Absolute #) 0.72 x10^3/uL (0.30-0.82); Monocytes % 11.2 % (5.3-12.2); Neutrophil % 60.6 % (34.0-67.9); Platelet Count 179 x10^3/uL (163-337); Red Blood Count 5.76 x10^6/uL (4.63-6.08); Red Cell Distribution Width 12.8 % (11.6-14.4); White Blood Count 6.5 x10^3/uL (4.23-9.07)
[2024-05-14 01:29] LABS: ALBUMIN 4.1 g/dL (3.5-5.0); ANION GAP 11.6 MEQ/L (5-15); BILIRUBIN,TOTAL 0.7 mg/dL (0.2-1.3); Calcium 9.7 mg/dL (8.4-10.2); Creatinine 1 1.07 mg/dL (0.66-1.25); EST GLOMERULAR FILTRATION RATE 78.5 ML/MIN; Potassium 4.3 mmol/L (3.5-5.1); Total Protein 6.5 g/dL (6.3-8.2)
[2024-05-14 01:41] LABS: NT PRO BNPII < 20.0 pg/mL (<300); TROPONIN < 0.012 ng/mL (0.000-0.033)
--- NOTE | 2024-05-14 02:02 | ERPHSYRPT ---
- History of Present Illness Time Seen by Provider: 05/14/24 00:48 Historian: patient Exam Limitations: no limitations Patient Subjective Stated Complaint: c/o chest pain Triage Nursing Assessment: patient brought self to ED with c/o chest pain. pain is 7/10 in the left side of chest and back. pain started 3 days ago in back and now is radiating to chest. patient said he thought he had shingles because there is a small rash on chest and it burned. patient has a cardiac history. vitals wnl, skin w/n/d, pulses normal, gait steady, patient doesn't appear to be in any distress at this time. Physician History: 64 years old male with history of coronary artery disease with stenting, recent DVT/bilateral pulmonary embolism on Xarelto, hypertension presented in the ER with left-sided chest pain for the last 2 days. Patient reports he woke up with burning sensation in the left upper back and then radiating to left anterior chest. Yesterday morning he noticed a rash which he thought could be shingles. Patient reported it marie to touch. Denies any difficulty breathing more than usual. Patient reports shortness of breath is different than when he was here recently for pulmonary embolism. Denies any fever chills or cough. Pain is mild to moderate and aggravated with touching chest wall/back and better with being still. Aspirin Treatment Today: unknown Allergies/Adverse Reactions: No Known Drug Allergies Allergy (Verified 05/14/24 01:00) Home Medications: Aspirin EC 81 mg [Ecotrin 81 mg] 81 mg PO DAILY 09/09/20 [History] Atorvastatin Calcium [Lipitor] 40 mg PO DAILY 03/17/24 [History] Lisinopril 5 mg [Zestril 5 MG] 5 mg PO DAILY 03/17/24 [History] PANTOPRAZOLE 40 mg Tablet [Protonix 40MG Tablet] 40 mg PO DAILY 03/17/24 [History] Rivaroxaban [Xarelto] 20 mg PO DAILY MDD 1 05/14/24 [History] Hx Tetanus, Diphtheria Vaccination/Date Given: Yes Hx Influenza Vaccination/Date Given: No Hx Pneumococcal Vaccination/Date Given: No Travel Risk - International Travel Have you traveled outside of the country in past 3 weeks: No - Emerging Infectious Disease Are you exhibiting symptoms associated with any current EIDs: No Symptoms: Cough: New Onset - Review of Systems Constitutional: No Symptoms Eyes: No Symptoms Ears, Nose, & Throat: No Symptoms Respiratory: Dyspnea Cardiac: Chest Pain Abdominal/Gastrointestinal: No Symptoms Genitourinary Symptoms: No Symptoms Skin: Rash, Skin Lesions Neurological: No Symptoms Psychological: Anxiety Endocrine: No Symptoms Hematologic/Lymphatic: No Symptoms - Past Medical History Pertinent Past Medical History: Yes Neurological History: TIA ENT History: No Pertinent History Cardiac History: Coronary Artery Disease, Deep Vein Thrombosis, Hypertension, Myocardial Infarction (NM) Respiratory History: Pulmonary Embolism Endocrine Medical History: No Pertinent History Musculoskeletal History: Arthritis GI Medical History: No Pertinent History History: No Pertinent History Psycho-Social History: No Pertinent History Male Reproductive Disorders: No Pertinent History Other Medical History: Factor 5 - Past Surgical History Past Surgical History: Yes Neuro Surgical History: No Pertinent History Cardiac: Cardiac Stent Respiratory: No Pertinent History Gastrointestinal: No Pertinent History Genitourinary: No Pertinent History Musculoskeletal: Other Male Surgical History: No Pertinent History Other Surgical History: Left Trigger finger, Hemohorrid Removal - Social History Smoking Status: Current every day smoker How long have you smoked: 43 years Exposure to second hand smoke: No Drug Use: none - Social Determinants of Health Will the patient participate in the screening: Yes Do you worry about a steady place to live?: No Do you have any problems with any of the following?: No known problems In the past 12 months,have you had to go without utilities?: No Transportation Issues: No Has anyone in your support network made you feel unsafe?: No Have you or anyone in your house had to go without enough: No - Nursing Vital Signs Nursing Vital Signs: Initial Vital Signs Temperature 97.3 F 05/14/24 00:46 Pulse Rate 73 05/14/24 00:46 Respiratory Rate 12 05/14/24 00:46 Blood Pressure 145/92 05/14/24 00:46 O2 Sat by Pulse Oximetry 98 05/14/24 00:46 Pain Scale Pain Intensity 7 - Physical Exam General Appearance: no apparent distress, alert, anxiety Eye Exam: PERRL/EOMI Ears, Nose, Throat Exam: normal ENT inspection Neck Exam: normal inspection, non-tender, supple, full range of motion Respiratory Exam: normal breath sounds, chest tenderness (Small confluent erythematous rash with vesicles, tender to touch the left anterior and posterior chest wall. No tenderness or burning sensation across midline.), lungs clear Cardiovascular Exam: regular rate/rhythm, normal heart sounds Gastrointestinal/Abdomen Exam: soft, normal bowel sounds, No tenderness Back Exam: normal range of motion Extremity Exam: normal inspection, normal range of motion Neurologic Exam: alert, oriented x 3, cooperative Skin Exam: normal color SpO2 Interpretation: normal SpO2: 98 O2 Delivery: Room Air - Course EKG Interpreted by Me: RATE (78), Sinus Rhythm, NORMAL AXIS, NORMAL INTERVALS, NORMAL QRS Ordered Tests: Medication Summary Discontinued Medications Generic Name Dose Route Start Last Admin Trade Name Freq PRN Reason Stop Dose Admin Acyclovir 800 mg 05/14/24 02:00 05/14/24 02:50 Acyclovir 200 Mg Capsule PO 05/14/24 02:01 800 mg STAT ONE Administration Acyclovir Confirm 05/14/24 02:50 Acyclovir 200 Mg Capsule Administered 05/14/24 02:51 Dose 800 mg .ROUTE .[employer] Lab/Rad Data: Laboratory Result Diagrams 05/14/24 01:14 05/14/24 01:14 Laboratory Results 05/14/24 05/14/24 05/14/24 Range/Units 01:14 01:14 01:14 WBC 6.5 (4.23-9.07) x10^3/uL RBC 5.76 (4.63-6.08) x10^6/uL Hgb 16.8 (13.7-17.5) g/dL Hct 49.6 (40.1-51.0) % MCV 86.1 (79.0-92.2) fL MCH 29.2 (25.7-32.2) pg MCHC 33.9 (32.3-36.5) g/dL RDW 12.8 (11.6-14.4) % Plt Count 179 (163-337) x10^3/uL MPV 9.4 (9.4-12.4) fL Gran % 60.6 (34.0-67.9) % Immature Gran % (Auto) 0.2 (0.001-0.429) % Nucleat RBC Rel Count 0.0 (0.00-0.2) % Eos # (Auto) 0.13 (0.04-0.54) x10^3/uL Immature Gran # (Auto) 0.01 (0.001-0.031) x10^3u/L Absolute Lymphs (auto) 1.64 (1.32-3.57) x10^3/uL Absolute Monos (auto) 0.72 (0.30-0.82) x10^3/uL Absolute Nucleated RBC 0.00 (0.00-0.012) x10^3u/L Lymphocytes % 25.4 (21.8-53.1) % Monocytes % 11.2 (5.3-12.2) % Eosinophils % 2.0 (0.8-7.0) % Basophils % 0.6 (0.2-1.2) % Absolute Granulocytes 3.91 (1.78-5.38) x10^3/uL Basophils # 0.04 (0.01-0.08) x10^3/uL Sodium 139 (135-145) mmol/L Potassium 4.3 (3.5-5.1) mmol/L Chloride 108 H (98-107) mmol/L Carbon Dioxide 24 (22-30) mmol/L Anion Gap 11.6 (5-15) MEQ/L BUN 13 (9-20) mg/dL Creatinine 1.07 (0.66-1.25) mg/dL Estimated GFR 78.5 ML/MIN Glucose 96 (74-106) mg/dL Calcium 9.7 (8.4-10.2) mg/dL Total Bilirubin 0.70 (0.2-1.3) mg/dL AST 32 (17-59) U/L ALT 36 (0-50) U/L Alkaline Phosphatase 65 (38-126) U/L Troponin I < 0.012 (0.000-0.033) ng/mL NT-Pro-B Natriuret Pep < 20.0 (<300) pg/mL Serum Total Protein 6.5 (6.3-8.2) g/dL Albumin 4.1 (3.5-5.0) g/dL - Progress Progress: improved Air Movement: good Progress Note: 05/14/24 02:13 64-year-old with history of CAD stenting, PE on Xarelto is evaluated in the ER for left-sided chest pain for the last 2 days with appearance of rash. Rash is typical for shingles, tenderness and is not crossing midline. Offered pain medication which she declined. EKG is normal sinus rhythm with no acute ischemic changes. Chest x-ray negative for any acute cardiopulmonary findings reviewed by me, official report is pending. Normal white count, unremarkable chemistries and negative troponin. With patient's chest pain going on for almost 2 days and 1 negative troponin is enough to rule out ACS. Patient has been taking Xarelto regularly, oxygen saturation of 97%, heart rate in 60s, patient is not in any distress. Less concerned about another PE. With reproducibility of pain, rash I believe patient is having pain secondary to shingles rash. Offered pain medications here and to go home which she does not wanted. Since patient is within 72 hours he started on antiviral. Discussed signs symptoms of worsening needing return to ER which he seems understanding. Stable for discharge. Blood Culture(s) Obtained: No Antibiotics given: No Counseled pt/family regarding: lab results, diagnosis, need for follow-up, rad results - Departure Departure Disposition: Home Clinical Impression: Shingles rash, Chest pain Condition: Stable Critical Care Time: No Referrals: BRAD KILGORE MD [Primary Care Provider] - Follow up with PCP 1 day Instructions: Chest Pain (DC), Shingles Additional Instructions: Take Tylenol as needed. Apply calamine lotion. Follow-up with primary care for reevaluation. Return to ER for worsening of rash or if having increased chest pain, difficulty breathing etc. Continue with Xarelto. Prescriptions: Valacyclovir HCl [Valtrex] 1,000 mg PO TID 5 Days #15 tablet
[2024-05-14] MEDS: ACYCLOVIR PO ONE (02:50)
[2024-05-14] MEDS ORDERED: ACYCLOVIR ONE (02:50)
[2024-05-14 03:08] VITALS: BP 146/101; PULSE 60; RESP 19
--- NOTE | 2024-05-14 09:43 | XRAY ---
Indication: Chest pain. Comparison: None Portable chest demonstrates minimal bibasilar subsegmental atelectasis/scarring. Remaining lungs clear. Heart not enlarged with coronary stent. Bony thorax intact with osteopenia and mild degenerative changes. Impression: Nonacute chest with chronic features.
[2024-05-20 08:12] VITALS: O2SAT 98
== END 2024-05-14 03:15 | disposition home or self-care (01) ==
LOC: ED 00:46
DX: B02.9 Zoster without complications (principal); R07.9 Chest pain, unspecified; I10 Essential (primary) hypertension; Z79.01 Long term (current) use of anticoagulants; Z79.899 Other long term (current) drug therapy; Z72.0 Tobacco use
CPT/HCPCS: 36415; 71045; 80053; 83880; 84484; 85025; 99283; 99284; A9270-GY